=== PATIENT | female | born 1980 | race Hispanic/Latino ===

== ENCOUNTER 2020-02-20 11:00 | Outpatient (CLI) | payer OTHER | END 2020-02-20 11:01 | disposition home or self-care (01) | LOC: SLR 11:00 | PROVIDERS: ATTEND Surgery | DX: G47.30 Sleep apnea, unspecified (principal) | CPT/HCPCS: 95810 ==

== ENCOUNTER 2020-03-26 11:00 | Outpatient (CLI) | payer OTHER | END 2020-03-26 11:01 | disposition home or self-care (01) | LOC: SLR 11:00 | PROVIDERS: ATTEND Otolaryngology | DX: G47.33 Obstructive sleep apnea (adult) (pediatric) (principal) | CPT/HCPCS: 95811 ==

== ENCOUNTER 2020-07-20 09:34 | Outpatient (CLI) | payer OTHER ==
--- NOTE | 2020-07-20 11:51 | Fluoroscopy Report ---
UPPER GI HISTORY: FUNCTIONAL DYSPEPSIA. TECHNIQUE: Single and double contrast barium technique utilized to evaluate the esophagus, stomach, and duodenal C-loop. FINDINGS: To begin the exam, swallowing was evaluated in the lateral position under direct fluorosco py. Swallowing was normal. No mucosal irregularity, mass, mass effect, or critical stenosis. There were no abnormal tertiary c ontractions as seen with dysmotility. A very small sliding hiatal hernia was witnessed during this ex am measuring up to 2 cm. No reflux was witnessed. IMPRESSION: Very small hiatal hernia, otherwise, unremarkable exam. Fluoroscopic time: 3.1 minutes Number of fluoroscopic images: 32 Signer Name: Rolando Villagran Jr, MD Signed: 07/20/2020 11:46 AM Workstation Name: [id number]
== END 2020-07-20 09:35 | disposition home or self-care (01) ==
LOC: FLUORO 09:34
PROVIDERS: ATTEND Surgery
DX: K44.9 Diaphragmatic hernia without obstruction or gangrene (principal); K30 Functional dyspepsia
CPT/HCPCS: 74246

== ENCOUNTER 2020-07-27 10:58 | Day surgery (SDC) | payer OTHER ==
[~2020-07-27 10:58] MED LIST: SODIUM CHLORIDE 0.9% 1000 ML 1,000 ML IV SCH
--- NOTE | 2020-07-27 12:14 | Anesthesia Day of Surgery ---
Anesthesia Day of Surgery - Day of Surgery Patient Examined: Yes Patient H&P Reviewed: Yes Patient is NPO: Yes
--- NOTE | 2020-07-27 12:15 | Anesthesia Consultation ---
Anesthesia Consult and Med Hx Date of service: 07/27/20 - Airway Anesthetic Teeth Evaluation: Chipped ROM Head & Neck: Adequate Mental/Hyoid Distance: Adequate Mallampati Class: Class III Intubation Access Assessment: Probably Good - Pre-Operative Health Status ASA Pre-Surgery Classification: ASA3 Proposed Anesthetic Plan: MAC - Pulmonary Hx Respiratory Symptoms: No (+2FS) Hx Sleep Apnea: Yes - Cardiovascular System Hx Hypertension: Yes (-cardiac w/u) - Gastrointestinal Hx Gastroesophageal Reflux Disease: Yes - Endocrine Hx Renal Disease: No Hx Thyroid Disease: No - Other Systems Hx Obesity: Yes
[2020-07-27] MEDS ORDERED: propofoL 200 MG/20 ML VIAL IV ONE (13:20)
--- NOTE | 2020-07-27 13:25 | Discharge Summary ---
Providers - Providers Date of Admission: 07/27/20 Date of discharge: 07/27/20 Attending physician: HIWOT IRELAND MD Primary care physician: SO CHRISTIE MD Hospitalization Reason for admission: pre-op EGD for bariatric surgery Condition: Good Procedures: EGD with biopsy Hospital course: Pt presented for a pre-op EGD as part of planning for up coming bariatric surgery. Procedure was uneventful and pt recovered well and was discharged to home. Disposition: DC- TO HOME OR SELFCARE Core Measure Documentation - Palliative Care Palliative Care/ Comfort Measures: Not Applicable - Core Measures Any of the following diagnoses?: none Exam - Physical Exam Narrative exam: unchanged from pre-op - Constitutional Vitals: Temp Pulse Resp BP Pulse Ox 97.0 F L 85 16 126/77 97 07/27/20 12:20 07/27/20 12:20 07/27/20 12:20 07/27/20 12:20 07/27/20 12:20 Plan Activity: no restrictions Diet: low carbohydrate Follow up with: SO CHRISTIE MD [Primary Care Provider] - 7 Days
--- NOTE | 2020-07-27 13:26 | Operative Report ---
Operative Report Operative Report: DATE: 07/27/20 SURGERY: Upper endoscopy. SURGEON: Sharan Segal M.D. PROCEDURE: EGD with biopsy PRE OP DX: morbid obesity, GERD POST OP DX: morbid obesity, GERD TYPE OF ANESTHESIA: MAC. ESTIMATED BLOOD LOSS: None. COMPLICATIONS: None. SPECIMENS REMOVED: antral biopsy FINDINGS: 1. Small hiatal hernia. 2. Otherwise, normal esophagus, stomach and first portion of duodenum. INDICATIONS:INDICATION FOR PROCEDURE: Patient is a 39-year-old female with a long history of morbid obesity. She is planned to have a weight loss procedure and is here for preoperative planning EGD. PROCEDURE DETAILS: After consent was reviewed, patient was taken back to the operating room where patient was placed in the left lateral decubitus position and a bite block was placed in the mouth. After a time-out was called, MAC anesthesia was initiated. I then passed the endoscope into her oropharynx, into her esophagus, visualized the entire esophagus, which was all within normal limits. Z-line was noted to about 35cm from incisors. I then visualized the stomach and the first portion of the duodenum and there were no abnormalities I could clearly visualize. A cold forceps biopsy of the antrum was taken and will be sent to pathology to evaluate for H.pylori. I then retroflexed the scope in the stomach and visualized the hiatus and I could see a small hiatal hernia. I then desufflated the stomach and removed the endoscope. Patient tolerated procedure well and was transferred to recovery room in good and stable condition.
--- NOTE | 2020-07-27 16:15 | Post Anesthesia Evaluation ---
- Post Anesthesia Evaluation Patient Participated: Yes Airway Patent: Yes Stable Respiratory Function: Yes Nausea/Vomiting: No Temp > 96.8F: Yes Pain Manageable: Yes Adequeate Hydration: Yes Anesthesia Complications: No Block Receding Appropriately: Not Applicable Patient on Ventilator: No
[2020-07-27 19:33] VITALS: BP 114/74
== END 2020-07-27 10:59 | disposition home or self-care (01) ==
LOC: GIO 10:58
PROVIDERS: ATTEND Surgery
DX: K21.9 Gastro-esophageal reflux disease without esophagitis (principal); E66.01 Morbid (severe) obesity due to excess calories; K29.70 Gastritis, unspecified, without bleeding; K44.9 Diaphragmatic hernia without obstruction or gangrene; G47.30 Sleep apnea, unspecified; Z79.899 Other long term (current) drug therapy; Z90.49 Acquired absence of other specified parts of digestive tract; Z98.890 Other specified postprocedural states
CPT/HCPCS: 43239; 88305; 88342; J2704; J7030

== ENCOUNTER 2020-09-08 12:53 | Emergency (ER) | payer OTHER ==
[2020-09-08] MEDS ORDERED: ONDANSETRON 4 MG/2 ML INJ IV ONE (13:36)
[2020-09-08] MEDS ORDERED: SODIUM CHLORIDE 0.9% 1000 ML 1,000 ML IV ONE ×2 (13:36→15:51)
--- NOTE | 2020-09-08 13:39 | Emergency Department Report ---
HPI - General Chief Complaint: Abdominal Pain Time Seen by Provider: 09/08/20 13:25 - HPI HPI: This is a 39-year-old female presents to the emergency department from home with a complaint of generalized fatigue and weakness, decreased oral intak e, after having gastric bypass surgery about [address] Segal. The patient says that she has some midline chest and abdominal discomfort when she tries to eat or drink. She says "the thought of eating or drinking anything makes me nauseous." She does have some intermittent right lower quadrant abdominal pain that radiates around towards the back. The patient says that she contacted Dr. Segal and was told to come to the emergency department for further evaluation and some IV fluid. The patient denies any other past medical history. She denies any fever, dysuria, vaginal bleeding or discharge, diarrhea. ED Past Medical Hx - Past Medical History Hx Hypertension: Yes Hx Heart Attack/AMI: No (normal EF and neg stress test) Hx GERD: Yes Hx Liver Disease: No Hx Renal Disease: No Hx Asthma: Yes (last albuterol use 01/2020) - Social History Smoking Status: Never Smoker Substance Use Type: None - Medications Home Medications: Home Medications Medication Instructions Recorded Confirmed Last Taken Type Losartan/Hydrochlorothiazide 1 each PO QDAY 07/27/20 08/23/20 08/23/20 04:00 History [Losartan-Hctz 100-25 mg Tab] Melatonin [Melatonin 10MG CAP] 10 mg PO HS 08/18/20 08/23/20 08/21/20 20:00 History Multivitamin [Multiple Vitamins] 1 each PO DAILY 08/18/20 08/23/20 08/22/20 09:00 History Omeprazole 20 mg PO DAILY 08/18/20 08/23/20 08/22/20 20:00 History diphenhydrAMINE [Benadryl CAP] 25 mg PO Q8HR PRN 08/18/20 08/18/20 Unknown History ED Review of Systems ROS: Stated complaint: BLOOD WORK/FLUIDS Other details as noted in HPI Comment: All other systems reviewed and negative Constitutional: weakness. denies: chills, fever Eyes: denies: eye pain, vision change ENT: denies: ear pain, throat pain Respiratory: denies: cough, shortness of breath Cardiovascular: denies: chest pain, palpitations Gastrointestinal: abdominal pain, nausea. denies: diarrhea Genitourinary: denies: dysuria, discharge Musculoskeletal: back pain. denies: arthralgia Skin: denies: rash, lesions Neurological: denies: headache, numbness Physical Exam - Physical Exam Vital Signs: Vital Signs 09/08/20 13:16 Pulse Rate 82 Respiratory 14 Rate Blood Pressure 159/87 [Left] O2 Sat by Pulse 98 Oximetry Physical Exam: GENERAL: The patient is well-developed well-nourished. HENT: Normocephalic. Atraumatic. Patient has moist mucous membranes. EYES: Extraocular motions are intact. NECK: Supple. Trachea is midline. CHEST/LUNGS: Clear to auscultation. There is no respiratory distress noted. HEART/CARDIOVASCULAR: Regular. There is no tachycardia. There is no murmur. ABDOMEN: Abdomen is soft. There is some mild right-sided abdominal tenderness to palpation. No guarding. Patient has normal bowel sounds. There is no abdominal distention. SKIN: Skin is warm and dry. NEURO: The patient is awake, alert, and oriented. The patient is cooperative. The patient has no focal neurologic deficits. Normal speech. MUSCULOSKELETAL: There is no tenderness or deformity. There is no limitation range of motion. BACK: No CVA tenderness. ED Course Vital Signs 09/08/20 13:16 Pulse Rate 82 Respiratory 14 Rate Blood Pressure 159/87 [Left] O2 Sat by Pulse 98 Oximetry - Consultations Consultation #1: 09/08/20 15:52 I spoke to the patient's general surgeon, Dr. Segal. Her main concern is that the patient has some level of malnourishment as the patient has been avoiding eating or drinking as it causes her to feel nauseated, but there has been no vomiting. He does not feel the patient needs repeat CT imaging of the abdomen at this time. She would like the patient to receive a few liters of IV fluid resuscitation. Dr. Segal has already called in multiple antiemetics to the patient's pharmacy for her to warehouse picker after discharge from the emergency department. ED Medical Decision Making - Lab Data Result diagrams: 09/08/20 14:57 09/08/20 14:57 Lab Results 09/08/20 09/08/20 09/08/20 Range/Units 14:57 14:57 14:57 WBC 9.8 (4.5-11.0) K/mm3 RBC 4.57 (3.65-5.03) M/mm3 Hgb 13.1 (10.1-14.3) gm/dl Hct 38.5 (30.3-42.9) % MCV 84 (79-97) fl MCH 29 (28-32) pg MCHC 34 (30-34) % RDW 15.1 (13.2-15.2) % Plt Count 351 (140-440) K/mm3 Lymph % (Auto) 11.4 L (13.4-35.0) % [place] % (Auto) 5.5 (0.0-7.3) % Eos % (Auto) 1.1 (0.0-4.3) % Baso % (Auto) 0.6 (0.0-1.8) % Lymph # (Auto) 1.1 L (1.2-5.4) K/mm3 [place] # (Auto) 0.5 (0.0-0.8) K/mm3 Eos # (Auto) 0.1 (0.0-0.4) K/mm3 Baso # (Auto) 0.1 (0.0-0.1) K/mm3 Seg Neutrophils % 81.4 H (40.0-70.0) % Seg Neutrophils # 8.0 H (1.8-7.7) K/mm3 Sodium 137 (137-145) mmol/L Potassium 4.0 (3.6-5.0) mmol/L Chloride 102.3 (98-107) mmol/L Carbon Dioxide 25 (22-30) mmol/L Anion Gap 14 mmol/L BUN 9 (7-17) mg/dL Creatinine 0.8 (0.6-1.2) mg/dL Estimated GFR > 60 ml/min BUN/Creatinine Ratio 11 % Glucose 95 (65-100) mg/dL Calcium 9.0 (8.4-10.2) mg/dL Total Bilirubin 0.60 (0.1-1.2) mg/dL Direct Bilirubin 0.3 H (0-0.2) mg/dL Indirect Bilirubin 0.3 mg/dL AST 18 (5-40) units/L ALT 21 (7-56) units/L Alkaline Phosphatase 80 (35-129) units/L Total Protein 7.2 (6.3-8.2) g/dL Albumin 3.8 L (3.9-5) g/dL Albumin/Globulin Ratio 1.1 % Lipase 33 (13-60) units/L TSH (0.270-4.200) mlU/mL HCG, Qual Negative (Negative) Urine Color (Yellow) Urine Turbidity (Clear) Urine pH (5.0-7.0) Ur Specific [place] (1.003-1.030) Urine Protein (Negative) mg/dL Urine Glucose (UA) (Negative) mg/dL Urine Ketones (Negative) mg/dL Urine Blood (Negative) Urine Nitrite (Negative) Urine Bilirubin (Negative) Urine Ictotest (Negative) Urine Urobilinogen (<2.0) mg/dL Ur Leukocyte Esterase (Negative) Urine WBC (Auto) (0.0-6.0) /HPF Urine RBC (Auto) (0.0-6.0) /HPF U Epithel Cells (Auto) (0-13.0) /HPF Urine Bacteria (Auto) (Negative) /HPF Urine Mucus /HPF 09/08/20 09/08/20 Range/Units 14:57 15:15 WBC (4.5-11.0) K/mm3 RBC (3.65-5.03) M/mm3 Hgb (10.1-14.3) gm/dl Hct (30.3-42.9) % MCV (79-97) fl MCH (28-32) pg MCHC (30-34) % RDW (13.2-15.2) % Plt Count (140-440) K/mm3 Lymph % (Auto) (13.4-35.0) % [place] % (Auto) (0.0-7.3) % Eos % (Auto) (0.0-4.3) % Baso % (Auto) (0.0-1.8) % Lymph # (Auto) (1.2-5.4) K/mm3 [place] # (Auto) (0.0-0.8) K/mm3 Eos # (Auto) (0.0-0.4) K/mm3 Baso # (Auto) (0.0-0.1) K/mm3 Seg Neutrophils % (40.0-70.0) % Seg Neutrophils # (1.8-7.7) K/mm3 Sodium (137-145) mmol/L Potassium (3.6-5.0) mmol/L Chloride (98-107) mmol/L Carbon Dioxide (22-30) mmol/L Anion Gap mmol/L BUN (7-17) mg/dL Creatinine (0.6-1.2) mg/dL Estimated GFR ml/min BUN/Creatinine Ratio % Glucose (65-100) mg/dL Calcium (8.4-10.2) mg/dL Total Bilirubin (0.1-1.2) mg/dL Direct Bilirubin (0-0.2) mg/dL Indirect Bilirubin mg/dL AST (5-40) units/L ALT (7-56) units/L Alkaline Phosphatase (35-129) units/L Total Protein (6.3-8.2) g/dL Albumin (3.9-5) g/dL Albumin/Globulin Ratio % Lipase (13-60) units/L TSH 1.520 (0.270-4.200) mlU/mL HCG, Qual (Negative) Urine Color [place] (Yellow) Urine Turbidity Slightly-cloudy (Clear) Urine pH 5.0 (5.0-7.0) Ur Specific [place] 1.026 (1.003-1.030) Urine Protein 30 mg/dl (Negative) mg/dL Urine Glucose (UA) Neg (Negative) mg/dL Urine Ketones 20 (Negative) mg/dL Urine Blood Neg (Negative) Urine Nitrite Neg (Negative) Urine Bilirubin Sm (Negative) Urine Ictotest Positive (Negative) Urine Urobilinogen 4.0 (<2.0) mg/dL Ur Leukocyte Esterase Mod (Negative) Urine WBC (Auto) 15.0 H (0.0-6.0) /HPF Urine RBC (Auto) 2.0 (0.0-6.0) /HPF U Epithel Cells (Auto) 6.0 (0-13.0) /HPF Urine Bacteria (Auto) 1+ (Negative) /HPF Urine Mucus Few /HPF - Medical Decision Making This patient presents to the emergency department with a complaint of some nausea, generalized fatigue and weakness, and decreased oral intake has been going on since the patient had a gastric bypass surgery and repair of a hiatal hernia done by Dr. Segal about 2 weeks ago. The patient's abdomen is soft, nondistended and nontoxic in appearance. She does have some tenderness to palpation to the right middle and lower quadrants, but based on the patient's report and discussion with the general surgeon, this appears to be where there are subcutaneous dissolvable stitches. Abdominal x-ray does not show any gas pattern that appears consistent with obstruction, but there is some increased stool volume. Her labs are unremarkable including CBC, metabolic panel, lipase. There is some mild signs of dehydration. I discussed all of this with the general surgeon who did not feel that a CT scan of the abdomen and pelvis was warranted at this time. She agreed with the plan for IV fluid resuscitation and the patient can follow-up outpatient with her in the office. The patient received 2 L of IV fluid. Vital signs have been reassuring throughout her ED course. The patient will return to the emergency department with any worsening of her symptoms or with any acute distress. Critical Care Time: No Critical care attestation.: If time is entered above; I have spent that time in minutes in the direct care of this critically ill patient, excluding procedure time. ED Disposition Clinical Impression: Nausea, Dehydration, History of gastric bypass, Elevated blood pressure reading Disposition: DC-01 TO HOME OR SELFCARE Is pt being admited?: No Condition: Stable Instructions: Nausea, Adult, Rehydration, Adult, Dehydration, Adult, Abdominal Pain (ED) Additional Instructions: Please increase your oral rehydration. Please follow-up with Dr. Segal as previously scheduled. Return to the emergency department with any worsening of your symptoms, new or concerning symptoms not addressed during this current emergency department visit, or with any acute distress. Referrals: HIWOT SEGAL MD [Staff Physician] - 7-10 days Time of Disposition: 15:58
--- NOTE | 2020-09-08 14:36 | XRay Report ---
ABDOMEN 3 VIEW(S) INDICATION / CLINICAL INFORMATION: Abd pain. COMPARISON: None available. FINDINGS: TUBES / LINES: None. BOWEL GAS PATTERN: Constipation within the colon. Mild increased density is seen in the deep pelvis o n the left, nonspecific. FREE AIR / EXTRALUMINAL GAS: None seen. ADDITIONAL FINDINGS: No significant additional findings. CHEST: Visualized chest shows no significant abnormality. IMPRESSION: Constipation. Nonspecific bowel gas pattern otherwise. Signer Name: Edgard Amezquita MD Signed: 09/08/2020 2:32 PM Workstation Name: [id number]
[2020-09-08 15:14] LABS: Basophils # (Auto) 0.1 K/mm3 (0.0-0.1); Basophils % (Auto) 0.6 % (0.0-1.8); Eosinophils # (Auto) 0.1 K/mm3 (0.0-0.4); Eosinophils % (Auto) 1.1 % (0.0-4.3); Hematocrit 38.5 % (30.3-42.9); Hemoglobin 13.1 gm/dl (10.1-14.3); Lymphocytes # (Auto) 1.1 K/mm3 (1.2-5.4); Lymphocytes % (Auto) 11.4 % (13.4-35.0); Mean Corpuscular HGB Conc 34 % (30-34); Mean Corpuscular Volume 84 fl (79-97); Monocytes # (Auto) 0.5 K/mm3 (0.0-0.8); Monocytes % (Auto) 5.5 % (0.0-7.3); Platelet Count 351 K/mm3 (140-440); Red Blood Count 4.57 M/mm3 (3.65-5.03); Red Cell Distribution Width 15.1 % (13.2-15.2)
[2020-09-08 15:35] LABS: Alanine Aminotransferase 21 units/L (7-56); Albumin 3.8 g/dL (3.9-5); BUN/Creatinine Ratio 11; Blood Urea Nitrogen 9 mg/dL (7-17); Hemolysis Index 4
[2020-09-08 16:04] LABS: Bilirubin,Direct 0.3 mg/dL (0-0.2)
[2020-09-08 16:34] LABS: Bacteria,Urine 1+ /HPF (Negative); Bilirubin,Urine SM (Negative); Blood,Urine NEG (Negative); Color,Urine Amber (Yellow); Mucus,Urine FEW /HPF
[2020-09-08 17:01] LABS: Ictotest,Urine Positive (Negative)
[2020-09-08 17:17] VITALS: BP 156/89
== END 2020-09-08 17:24 | disposition home or self-care (01) ==
LOC: ED 12:53
DX: E86.0 Dehydration (principal); R03.0 Elevated blood-pressure reading, without diagnosis of hypertension; R11.0 Nausea; I10 Essential (primary) hypertension; K21.9 Gastro-esophageal reflux disease without esophagitis; J45.909 Unspecified asthma, uncomplicated; Z79.899 Other long term (current) drug therapy
CPT/HCPCS: 36415; 74019; 80048; 80076; 81001; 83690; 84443; 84703; 85025; 87086; 96361; 96374; 99284; J2405; J7030

== ENCOUNTER 2020-09-22 12:26 | Outpatient (CLI) | payer OTHER ==
[2020-09-22 13:26] LABS: % Iron Saturation 13.22 %; Alanine Aminotransferase 37 units/L (7-56); Albumin 4.1 g/dL (3.9-5); BUN/Creatinine Ratio 11; Blood Urea Nitrogen 10 mg/dL (7-17); Calcium 9.6 mg/dL (8.4-10.2); Chol/HDL Ratio 3.67 %; HDL Cholesterol 37 mg/dL (40-59); Hemolysis Index 1; Iron 39 ug/dL (37-170); LDL Cholesterol,Direct 88 mg/dL (50-130); Total Iron Binding Capacity 295 mcg/dL (250-450)
[2020-09-23 08:15] LABS: Basophils % (Auto) 0.4 % (0.0-1.8); Eosinophils # (Auto) 0.3 K/mm3 (0.0-0.4); Eosinophils % (Auto) 3.5 % (0.0-4.3); Hematocrit 39.3 % (30.3-42.9); Lymphocytes # (Auto) 1.5 K/mm3 (1.2-5.4); Lymphocytes % (Auto) 20.6 % (13.4-35.0); Mean Corpuscular HGB Conc 33 % (30-34); Mean Corpuscular Volume 85 fl (79-97); Monocytes # (Auto) 0.5 K/mm3 (0.0-0.8); Monocytes % (Auto) 6.2 % (0.0-7.3); Platelet Count 313 K/mm3 (140-440); Red Blood Count 4.64 M/mm3 (3.65-5.03); Red Cell Distribution Width 15.7 % (13.2-15.2)
== END 2020-09-22 12:27 | disposition home or self-care (01) ==
LOC: LAB 12:26
PROVIDERS: ATTEND Surgery
DX: E66.01 Morbid (severe) obesity due to excess calories (principal); K30 Functional dyspepsia; E11.9 Type 2 diabetes mellitus without complications; Z98.84 Bariatric surgery status
CPT/HCPCS: 36415; 80053; 80061; 82306; 82607; 82728; 83036; 83550; 84425; 84443; 85025

== ENCOUNTER 2020-09-26 17:40 | Emergency (ER) | payer OTHER ==
[2020-09-26 17:56] VITALS: BP 132/77
--- NOTE | 2020-09-26 18:09 | Event Note ---
ED Screening Note Date of service: 09/26/20 Time: 18:08 ED Screening Note: Patient sent here by Dr. Segal for IV fluids Had a gastric sleeve surgery 5 weeks ago This initial assessment/diagnostic orders/clinical plan/treatment(s) is/are subject to change based on patients health status, clinical progression and re- assessment by fellow clinical providers in the ED. Further treatment and workup at subsequent clinical providers discretion. Patient/guardian urged not to elope from the ED as their condition may be serious if not clinically assessed and managed. Initial orders include: Labs
[2020-09-26 18:30] LABS: Basophils # (Auto) 0.1 K/mm3 (0.0-0.1); Basophils % (Auto) 1.1 % (0.0-1.8); Eosinophils # (Auto) 0.2 K/mm3 (0.0-0.4); Eosinophils % (Auto) 2.6 % (0.0-4.3); Hematocrit 36.5 % (30.3-42.9); Hemoglobin 12.4 gm/dl (10.1-14.3); Lymphocytes # (Auto) 1.6 K/mm3 (1.2-5.4); Lymphocytes % (Auto) 21.4 % (13.4-35.0); Mean Corpuscular HGB Conc 34 % (30-34); Mean Corpuscular Volume 85 fl (79-97); Monocytes # (Auto) 0.5 K/mm3 (0.0-0.8); Monocytes % (Auto) 6.3 % (0.0-7.3); Platelet Count 290 K/mm3 (140-440); Red Cell Distribution Width 15.7 % (13.2-15.2)
[2020-09-26 18:54] LABS: Alanine Aminotransferase 41 units/L (7-56); Albumin 3.9 g/dL (3.9-5); BUN/Creatinine Ratio 8; Blood Urea Nitrogen 7 mg/dL (7-17); Calcium 9.3 mg/dL (8.4-10.2); Hemolysis Index 6
[2020-09-26 20:06] LABS: Bacteria,Urine 1+ /HPF (Negative); Bilirubin,Urine NEG (Negative); Blood,Urine NEG (Negative); Color,Urine Yellow (Yellow); Mucus,Urine FEW /HPF
--- NOTE | 2020-09-26 20:26 | Emergency Department Report ---
ED General Adult HPI - General Chief complaint: Nausea/Vomiting/Diarrhea Stated complaint: WEAK, HARD TO STAND UP, DEHYDRATION Time Seen by Provider: 09/26/20 19:05 Source: patient Mode of arrival: Ambulatory Limitations: No Limitations - History of Present Illness Initial comments: 40-year-old female presents to the emergency room stating she is weak and and feels she is having dehydration. Patient states that she talk to Dr. Segal and she was sent here for IV fluids. Patient was having a history of nausea and vomiting and was prescribed antinausea medication. Patient last vomited 3 days ago. She is able to drink just decreasing no desire. Last menstrual period was 09/13/2020 she is 3 para 3 past medical history of hypertension and obesity. Patient is able to take her blood pressure medications without any difficulties. Patient currently has no pain. Onset/Timin -: days(s) Severity scale (0 -10): 0 Associated Symptoms: loss of appetite, weakness. denies: chest pain, cough, diaphoresis, fever/chills, nausea/vomiting (Resolved), rash, seizure, shortness of breath, syncope - Related Data Home Medications Medication Instructions Recorded Confirmed Last Taken Losartan/Hydrochlorothiazide 1 each PO QDAY 07/27/20 08/23/20 08/23/20 04:00 [Losartan-Hctz 100-25 mg Tab] Melatonin [Melatonin 10MG CAP] 10 mg PO HS 08/18/20 08/23/20 08/21/20 20:00 Multivitamin [Multiple Vitamins] 1 each PO DAILY 08/18/20 08/23/20 08/22/20 09:00 Omeprazole 20 mg PO DAILY 08/18/20 08/23/20 08/22/20 20:00 diphenhydrAMINE [Benadryl CAP] 25 mg PO Q8HR PRN 08/18/20 08/18/20 Unknown Allergies Allergy/AdvReac Type Severity Reaction Status Date / Time No Known Allergies Allergy Verified 09/08/20 13:15 ED Review of Systems ROS: Stated complaint: WEAK, HARD TO STAND UP, DEHYDRATION Other details as noted in HPI Comment: All other systems reviewed and negative ED Past Medical Hx - Past Medical History Previous Medical History?: Yes Hx Hypertension: Yes Hx Heart Attack/AMI: No (normal EF and neg stress test) Hx GERD: Yes Hx Liver Disease: No Hx Renal Disease: No Hx Asthma: Yes (last albuterol use 01/2020) - Surgical History Past Surgical History?: Yes Additional Surgical History: Gastric sleeve - Social History Smoking Status: Never Smoker Substance Use Type: Alcohol - Medications Home Medications: Home Medications Medication Instructions Recorded Confirmed Last Taken Type Losartan/Hydrochlorothiazide 1 each PO QDAY 07/27/20 08/23/20 08/23/20 04:00 History [Losartan-Hctz 100-25 mg Tab] Melatonin [Melatonin 10MG CAP] 10 mg PO HS 08/18/20 08/23/20 08/21/20 20:00 History Multivitamin [Multiple Vitamins] 1 each PO DAILY 08/18/20 08/23/20 08/22/20 09:00 History Omeprazole 20 mg PO DAILY 08/18/20 08/23/20 08/22/20 20:00 History diphenhydrAMINE [Benadryl CAP] 25 mg PO Q8HR PRN 08/18/20 08/18/20 Unknown History ED Physical Exam - General Limitations: No Limitations General appearance: alert, in no apparent distress - Head Head exam: Present: atraumatic, normocephalic - Eye Eye exam: Present: normal appearance - ENT ENT exam: Present: mucous membranes moist - Neck Neck exam: Present: normal inspection, full ROM - Respiratory Respiratory exam: Present: normal lung sounds bilaterally. Absent: chest wall tenderness - Cardiovascular Cardiovascular Exam: Present: regular rate, normal rhythm. Absent: systolic murmur, diastolic murmur, rubs, gallop - GI/Abdominal GI/Abdominal exam: Present: soft. Absent: distended - Extremities Exam Extremities exam: Present: normal inspection, full ROM. Absent: pedal edema - Back Exam Back exam: Present: normal inspection - Neurological Exam Neurological exam: Present: alert, oriented X3, normal gait - Psychiatric Psychiatric exam: Present: normal affect, normal mood - Skin Skin exam: Present: warm, dry, intact, normal color. Absent: rash ED Course Vital Signs 09/26/20 09/26/20 17:53 21:08 Temperature 97.8 F Pulse Rate 89 Respiratory 18 18 Rate Blood Pressure 132/77 O2 Sat by Pulse 97 100 Oximetry ED Medical Decision Making - Lab Data Result diagrams: 09/26/20 18:21 09/26/20 18:21 - Medical Decision Making 40-year-old female presents to the emergency room stating she is weak and and feels she is having dehydration. Patient states that she talk to Dr. Segal and she was sent here for IV fluids. Patient was having a history of nausea and vomiting and was prescribed antinausea medication. Patient last vomited 3 days ago. She is able to drink just decreasing no desire. Last menstrual period was 09/13/2020 she is 3 para 3 past medical history of hypertension and obesity. Patient is able to take her blood pressure medications without any difficulties. Patient currently has no pain. Patient's vital signs are stable lab work is stable she is clinically not dehydrated. Patient is able to drink. Encourage patient to continue drinking advance her diet as tolerated and follow-up with Dr. Segal. Spoke to Dr. Carney regarding patient's case. Critical care attestation.: If time is entered above; I have spent that time in minutes in the direct care of this critically ill patient, excluding procedure time. ED Disposition Clinical Impression: Decreased oral intake, Morbid obesity with BMI of 40.0-44.9, adult Disposition: DC-01 TO HOME OR SELFCARE Is pt being admited?: No Does the pt Need Aspirin: No Condition: Stable Additional Instructions: All labs are within normal limits there is no signs of dehydration. Increase your fluid intake advance your diet as tolerated follow-up with Dr. Segal. Referrals: THANH ARNDT MD [Primary Care Provider] - 3-5 Days Forms: Work/School Release Form(ED)
== END 2020-09-26 21:17 | disposition home or self-care (01) ==
LOC: ED 17:40
DX: R63.8 Other symptoms and signs concerning food and fluid intake (principal); E66.01 Morbid (severe) obesity due to excess calories; I10 Essential (primary) hypertension; J45.909 Unspecified asthma, uncomplicated; K21.9 Gastro-esophageal reflux disease without esophagitis; Z68.41 Body mass index [BMI] 40.0-44.9, adult; Z98.890 Other specified postprocedural states; Z79.899 Other long term (current) drug therapy
CPT/HCPCS: 36415; 80053; 81001; 83690; 85025

== ENCOUNTER 2021-02-16 11:00 | Outpatient (CLI) | payer OTHER ==
[2021-02-16 12:02] LABS: Basophils # (Auto) 0.1 K/mm3 (0.0-0.1); Basophils % (Auto) 1.5 % (0.0-1.8); Eosinophils # (Auto) 0.2 K/mm3 (0.0-0.4); Eosinophils % (Auto) 2.1 % (0.0-4.3); Hematocrit 35.3 % (30.3-42.9); Hemoglobin 11.7 gm/dl (10.1-14.3); Lymphocytes # (Auto) 1.5 K/mm3 (1.2-5.4); Lymphocytes % (Auto) 19.3 % (13.4-35.0); Mean Corpuscular HGB Conc 33 % (30-34); Mean Corpuscular Volume 86 fl (79-97); Monocytes # (Auto) 0.4 K/mm3 (0.0-0.8); Monocytes % (Auto) 5.6 % (0.0-7.3); Platelet Count 274 K/mm3 (140-440); Red Blood Count 4.09 M/mm3 (3.65-5.03); Red Cell Distribution Width 14.8 % (13.2-15.2)
[2021-02-16 12:45] LABS: % Iron Saturation 10.86 %; Alanine Aminotransferase 14 units/L (7-56); Albumin 4.1 g/dL (3.9-5); Blood Urea Nitrogen 11 mg/dL (7-17); Calcium 9.7 mg/dL (8.4-10.2); Chol/HDL Ratio 3.17 %; HDL Cholesterol 45 mg/dL (40-59); Hemolysis Index 53; Iron 39 ug/dL (37-170); LDL Cholesterol,Direct 84 mg/dL (50-130); Total Iron Binding Capacity 359 mcg/dL (250-450)
[2021-02-16 12:52] LABS: BUN/Creatinine Ratio 16
[2021-02-19 10:54] LABS: Vitamin D, 25-OH, D2 <4 ng/mL
== END 2021-02-16 11:01 | disposition home or self-care (01) ==
LOC: LAB 11:00
PROVIDERS: ATTEND Surgery
DX: Z13.1 Encounter for screening for diabetes mellitus (principal); E66.01 Morbid (severe) obesity due to excess calories; K30 Functional dyspepsia; E11.9 Type 2 diabetes mellitus without complications; E55.9 Vitamin D deficiency, unspecified; K90.9 Intestinal malabsorption, unspecified; Z98.84 Bariatric surgery status
CPT/HCPCS: 36415; 80053; 80061; 82306; 82607; 82728; 83550; 83970; 84425; 84443; 85025

== ENCOUNTER 2021-09-08 11:18 | Outpatient (CLI) | payer OTHER ==
[2021-09-08 12:48] LABS: Alanine Aminotransferase 14 units/L (7-56); Albumin 4.1 g/dL (3.9-5); Blood Urea Nitrogen 11 mg/dL (7-17); Calcium 9.4 mg/dL (8.4-10.2); Chol/HDL Ratio 2.96 %; HDL Cholesterol 61 mg/dL (40-59); Hemolysis Index 47; Iron 85 ug/dL (37-170); LDL Cholesterol,Direct 105 mg/dL (50-130)
[2021-09-08 12:54] LABS: BUN/Creatinine Ratio 22
[2021-09-09 10:52] LABS: Hematocrit 32.7 % (30.3-42.9); Hemoglobin 11.2 gm/dl (10.1-14.3); Mean Corpuscular HGB Conc 34 % (30-34); Mean Corpuscular Volume 87 fl (79-97); Platelet Count 274 K/mm3 (140-440); Red Blood Count 3.77 M/mm3 (3.65-5.03); Red Cell Distribution Width 15.4 % (13.2-15.2)
== END 2021-09-08 11:19 | disposition home or self-care (01) ==
LOC: LAB 11:18
PROVIDERS: ATTEND Surgery
DX: Z13.21 Encounter for screening for nutritional disorder (principal); Z13.29 Encounter for screening for other suspected endocrine disorder; Z98.84 Bariatric surgery status; E66.01 Morbid (severe) obesity due to excess calories; E55.9 Vitamin D deficiency, unspecified
CPT/HCPCS: 36415; 80053; 80061; 82728; 83540; 83970; 84425; 84443

== ENCOUNTER 2021-09-19 10:57 | Outpatient (CLI) | payer OTHER ==
--- NOTE | 2021-09-19 15:10 | Fluoroscopy Report ---
BARIUM SWALLOW Indication: R13.10 DYSPHAGIA UNSPECIFIED. Technique: Single contrast barium technique utilized to evaluate the esophagus. FINDINGS: To begin the exam, swallowing was evaluated in the lateral position under direct fluorosco py. Swallowing was normal. No mucosal irregularity, mass, mass effect, or critical stenosis. There were no abnormal tertiary c ontractions as seen with dysmotility. No gastroesophageal reflux. Gastric bypass changes are noted in the upper abdomen. IMPRESSION: Unremarkable exam. Fluoroscopic time: 1.0 minutes Number of fluoroscopic images: 28 Signer Name: Rolando Villagran Jr, MD Signed: 09/19/2021 3:05 PM Workstation Name: [id number]
== END 2021-09-19 10:58 | disposition home or self-care (01) ==
LOC: FLUORO 10:57
PROVIDERS: ATTEND Surgery
DX: R13.10 Dysphagia, unspecified (principal)
CPT/HCPCS: 74220